=== PATIENT | female | born 1960 | race Caucasian/White ===

== ENCOUNTER 2016-08-29 07:14 | Day surgery (SDC) | payer MEDICARE ==
[~2016-08-29] VITALS: Ht 157.5 cm; Wt 57.7 kg
--- NOTE | ~2016-08-29 | OP ---
PATIENT NAME: TSERING TEMPLE MEDICAL RECORD: [id number] :60 [facility]: SURGEON: MILAGRO BROWN MD DATE OF OPERATION: 08/29/2016 PREOPERATIVE DIAGNOSES: Left C5 radiculopathy secondary to osteophyte formation and disc protrusion at C4-C5. PROCEDURE: Anterior cervical discectomy and fusion with VIP anterior cervical plate and screws from [employer], a 6 mm Colonial PEEK spacer, 2 mL of [employer]inex allograft, 4.6 x 16 mm self-tapping screws. DESCRIPTION OF TECHNIQUE: After induction of general endotracheal anesthesia, the patient was positioned supine on the operating table. Neck was prepped and draped in usual sterile fashion. Fluoroscopic x-ray and freer localized the C4-C5 interspace. A transverse skin incision was carried out in the midline to the sternocleidomastoid muscle and the platysma was divided with Bovie cautery. Using blunt and sharp dissection with Metzenbaum scissors, I proceeded in an avascular plane medial to the carotid sheath. Next, the C4-C5 interspace was confirmed. The longus colli muscles were elevated from the bodies of C4 and C5. The disc space was incised with #11 blade, curets used to removed disc material and osteophytes posteriorly with Midas-Cl drill. The posterior ____ with Cloward rongeurs and a 6 mm PEEK interbody spacer was placed in the disc space under distraction. Prior to this, it was filled with Kinex and allograft. A VIP anterior cervical plate and screws were used to span the C4-C5 interspace, locking cams tighten down the screw heads. Good position of the hardware was confirmed with fluoroscopic x-ray. Meticulous hemostasis was maintained throughout the wounds. The platysma and subdermal layer were closed with interrupted 3-0 Vicryl suture. The skin was reapproximated with Steri-Strips. A sterile dressing was applied on the wound. The patient was awakened in good condition and taken to recovery. All counts were reported as correct. Estimated blood loss was minimal. TRANSINT:[id number] Voice Confirmation ID: [id number] DOCUMENT ID: [id number] MILAGRO BROWN MD CC: [id number] DICTATION DATE: 09/13/16 1327 TEMPLE MEAT CUTTER: 09/13/16 224 [facility] 08/30/16 [facility] [address] [place] [address]
[~2016-08-29 07:14] MED LIST: ALEVE220 MG PO; ASPIRIN EC81 M1 PO; AVAPRO300 MG PO; HYDROCODONE-APA1 TAB PO; LIDOCAINE50 GM TOPICAL; MARTEN-TAB 325/1 TAB PO; PROZAC40 MG PO; SOMA350 MG PO; TENORMIN25 MG PO; VENTOLIN HFA18 GM INH; XALATAN 0.0052.5 ML EACH EYE; XANAX1 MG PO
--- NOTE | 2016-08-29 07:16 | NUR ---
0655 ENTER PATIENT'S ROOM. PT STATES ONLY CHANGES TO HEALTH HISTORY ASSESSMENT ARE INCREASED PAIN LEVEL THIS AM: 11/16 & NO SLEEP LAST NIGHT. LAST BM: 08/27/16. NPO SINCE MIDNIGHT EXCEPT AM MEDS. Breann ARAGON R.N.
[2016-08-29 07:20] VITALS: BP 158/83; BMI 23.3
[2016-08-29 08:19] LABS: APTT 26.6 SECONDS (22.8-39.4); HEMATOCRIT 35.5 % (36.0-48.0); HEMOGLOBIN 11.8 g/dL (12-16); INR 0.96 (0.85-1.17); MCHC 33.2 g/dL (31.0-37.0); MCV 87.2 fL (80.0-100.0); PLATELET COUNT 257 10x3/uL (130-400); PROTIME 12.7 SECONDS (11.6-15.0); RBC 4.07 10x6/uL (4.00-5.40); RDW 14.2 % (11.5-14.5); WBC 7.1 10x3/uL (4.8-10.8)
[2016-08-29 08:20] LABS: BASOPHILS 0.1 % (0-2); EOSINOPHILS 1.1 % (0-7); IMMATURE GRANULOCYTES 0.3 % (0-5); LYMPHOCYTES 29.5 % (15-50); MEAN PLATELET VOLUME 9.7 fL (7.4-10.4)
--- NOTE | 2016-08-29 08:25 | NUR ---
0820 08/28/16 LAB: K+ 3.3. OR/MYRON NOTIFIED. CHART FLAGGED. Breann ARAGON R.N.
--- NOTE | 2016-08-29 10:26 | NUR ---
PAIN ON LEFT SIDE
[2016-08-29 13:26] VITALS: BP 134/68
--- NOTE | 2016-08-29 13:30 | NUR ---
TO ROOM 2212 FROM PACU VIA BED.PT AWAKE AND ALERT.WITHOUT PAIN,BUT C/O ITCHING.ORIENTATION TO ROOM WITH FAMILY AND PT.INCISION ANTERIOR NECK APPROXIMATED,WITHOUT DRAINAGE.SITE WITHOUT SWELLING.PT REQUESTING ANXIETY MEDS,MEDS FOR ITCHING.ALSO REQUESTING COFFE AND FOOD.CALL LIGHT IN REACH.MONITOR
--- NOTE | 2016-08-29 13:50 | NUR ---
MEDS ORDERED FOR ITCHING.COFFEE TO PT.PT WAITING ON FOOD TRAY.REMAINS WITHOUT DISTRESS.
[2016-08-29 14:20] VITALS: BP 134/68; Ht 157.5 cm; Wt 57.7 kg
[2016-08-29 16:28] VITALS: BP 161/83
--- NOTE | 2016-08-29 18:33 | NUR ---
REMAINS WITHOUT DISTRESS,BUT REQUESTING PAIN MEDS AND SOMA BENY TIME.CALL LIGHT IN REACH
[2016-08-29 20:00] VITALS: BP 134/63
[2016-08-30] VITALS: BP 150/78
--- NOTE | 2016-08-30 01:29 | NUR ---
REC'D PATIENT SITTING UP IN BED WATCHING TV. ALERT AND ORIENTED X4. NO DISTRESS NOTED. IS WANTING HER SOMA. WILL ADMINISTER MEDS PRESCRIBED. DENIED FURTHER NEEDS AT THIS TIME. BED LOW, LOCKED, CALL LIGHT IN REACH, ALARM ON.
[2016-08-30 04:00] VITALS: BP 148/64
--- NOTE | 2016-08-30 07:15 | NUR ---
REPORT RECEIVED FROM BACK TENDER FOURDRINIER NURSE. CALL LIGHT IN REACH.
[2016-08-30 07:56] VITALS: BP 172/70
--- NOTE | 2016-08-30 08:19 | NUR ---
PARUL AND CHERELLE WITH AM MEDS. STATES PAIN HAS DECREASED TO A 9. REFUSES SCDs. CALL LIGHT IN REACH. WILL CONITNUE WITH PLAN OF CARE.
--- NOTE | 2016-08-30 09:20 | NUR ---
RX FOR PERCOCET HANDED TO PATIENT.
[2016-08-30] MEDS ORDERED: PERCOCET 10/3251 TA1 PO (09:55)
--- NOTE | 2016-08-30 11:51 | NUR ---
IV DCD WITH CATH INTACT.DISCHARGE INSTRUCTIONS,STATES UNDERSTANDING.
--- NOTE | 2016-08-30 12:32 | NUR ---
DC'D TO VEHICLE VIA WC WITH SON.
== END 2016-08-30 12:34 | disposition home or self-care (01) ==
LOC: OBSVTIME → D.OPS 07:14 → D.SDCHOLD 07:14 → D.MS 07:14 → D.SDCHOLD 07:14 → EDSTATUS 09:00 → D.MS 13:06 → D.SDCHOLD 13:06 → OBSVTIME 13:31 → D.OPS 08-30 12:34 → D.MS 08-30 12:34
PROVIDERS: Neurological Surgery
DX: M50.121 Cervical disc disorder at C4-C5 level with radiculopathy (principal)

== ENCOUNTER 2017-10-02 09:04 | Day surgery (SDC) | payer MEDICARE ==
[~2017-10-02] VITALS: Ht 157.5 cm; Wt 56.8 kg
--- NOTE | ~2017-10-02 | OP ---
PATIENT NAME: TSERING TEMPLE MEDICAL RECORD: [id number] :60 LOCATION:CASE ADMISSION DATE: SURGEON: MILAGRO RILEY MD DATE OF OPERATION: 10/03/2017 PREOPERATIVE DIAGNOSIS: Left C4 radiculopathy. POSTOPERATIVE DIAGNOSIS: Left C4 radiculopathy secondary to foraminal stenosis. SURGEON: Milargo Riley MD PROCEDURE: Left posterior cervical foraminotomy. DESCRIPTION AND TECHNIQUE: After induction of general endotracheal anesthesia, the patient was rolled prone and placed in Hoang head pins. Extremities were padded as well as shoulders and hip rolls. After sterile prep and drape of the posterior cervical spine, a 1:100,000 epinephrine with 1% lidocaine was infiltrated into the subcutaneous tissues on the left at C3-C4. The level was confirmed with a spinal needle. A stab incision was created with a #11 blade. Bovie cautery was used to incise the fascia and then using a subperiosteal dissection with an elevator, the lamina of C3 and C4 and spinous processes and facet joint were exposed on the left side. Level was confirmed with fluoroscopic x-ray. Next, a microscope and Midas Cl drill were used to perform a laminotomy, medial facetectomy and foraminotomy at C3-C4 on the left. Hypertrophied ligamentum flavum was removed with Cloward rongeurs. This appeared to decompress the left C4 nerve root well. Meticulous hemostasis was maintained throughout the wound. The wound was irrigated with copious amounts of Ancef irrigant solution. The fascia was closed with 2-0 Vicryl suture. The subdermal layer was closed with 3-0 Vicryl suture. Skin was closed with lucero. A sterile dressing was applied to the wound. The patient was awakened in good condition and taken to recovery. All counts were reported as correct. Estimated blood loss was minimal. TRANSINT:[id number] Voice Confirmation ID: [id number] DOCUMENT ID: [id number] MILAGRO RILEY MD at 1843 CC: [id number] DICTATION DATE: 10/16/17 2356 BUSINESS SERVICES DIRECTOR: 10/17/17 0752 [facility] 10/03/17 [place] [address]
[~2017-10-02 09:04] MED LIST changes: +NEURONTIN 300300 MG PO; +NORVASC10 MG PO; +PERCOCET 10/3251 TA1 PO; +PHENERGAN25 M1 PO; -TENORMIN25 MG PO; +TENORMIN50 MG PO
[2017-10-02 09:46] LABS: HEMATOCRIT 37.7 % (36.0-48.0); HEMOGLOBIN 12.8 g/dL (12-16); MCH 30.4 pg (26.0-34.0); MCV 89.5 fL (80.0-100.0); MEAN PLATELET VOLUME 9.2 fL (7.4-10.4); RBC 4.21 10x6/uL (4.00-5.40); RDW 13.2 % (11.5-14.5); WBC 9.3 10x3/uL (4.8-10.8)
[2017-10-02 10:16] VITALS: BP 117/61; BMI 22.9
[2017-10-02 15:42] VITALS: BP 118/58
[2017-10-02 15:45] VITALS: BP 118/58
[2017-10-02 17:01] VITALS: BP 118/58; Ht 157.5 cm; Wt 56.8 kg
[2017-10-02 17:38] VITALS: BP 155/90
[2017-10-02 18:38] VITALS: BP 123/63
[2017-10-02] MEDS ORDERED: BAYER CHEWABLE81 MG PO (19:55)
[2017-10-03 04:01] VITALS: BP 98/57
[2017-10-03 08:55] VITALS: BP 102/86
[2017-10-03 12:12] VITALS: BP 149/74
[2017-10-03] MEDS ORDERED: PERCOCET PO (12:35)
[2017-12-20] MEDS ORDERED: BREO ELLIPTA 11 EACH INH (10:31)
[2017-12-20] MEDS ORDERED: TRAZODONE HCL150 MG PO (10:35)
[2017-12-20] MEDS ORDERED: PERCOCET 5-3251 TAB PO (10:43)
== END 2017-10-03 14:08 | disposition home or self-care (01) ==
LOC: D.OPS 09:04 → D.MS 09:04 → D.PAN 10:15 → D.OPS 10:15 → D.MS 15:04 → D.OPS 10-03 14:08
PROVIDERS: Anesthesiology
DX: M54.12 Radiculopathy, cervical region (principal); I10 Essential (primary) hypertension; Z72.0 Tobacco use; Z01.812 Encounter for preprocedural laboratory examination

== ENCOUNTER → 2017-12-03 12:19 | Outpatient (CLI) | payer MEDICARE ==
[2017-10-02 17:01] VITALS: BMI 22.9
[~2017-12-03 12:19] MED LIST changes: +BAYER CHEWABLE81 MG PO; +BREO ELLIPTA 11 EACH INH; +PERCOCET 5-3251 TAB PO; +PERCOCET PO; +TRAZODONE HCL150 MG PO
== END | disposition home or self-care (01) ==
LOC: D.CT 12:19
DX: M54.12 Radiculopathy, cervical region (principal)

== ENCOUNTER 2017-12-21 05:13 | Day surgery (SDC) | payer MEDICARE ==
[~2017-12-21] VITALS: Ht 157.5 cm; Wt 63.6 kg
--- NOTE | ~2017-12-21 | OP ---
PATIENT NAME: TSERING TEMPLE MEDICAL RECORD: [id number] :60 LOCATION:[facility] ADMISSION DATE: SURGEON: MILAGRO RILEY MD DATE OF OPERATION: 12/21/2017 PREOPERATIVE DIAGNOSES: Disc herniation and osteophyte formation at C3-C4 bilaterally. POSTOPERATIVE DIAGNOSES: Disc herniation and osteophyte formation at C3-C4 bilaterally. PROCEDURE: Anterior cervical discectomy and fusion at C3-C4 with anterior cervical plate and screws, screws from [employer]; PEEK interbody cage and Janet bone stem cell allograft, removal of osteophytes. SURGEON: Milagro Riley MD DESCRIPTION AND TECHNIQUE: After induction of general endotracheal anesthesia, the patient was positioned on the operating table. Neck was prepped and draped in usual sterile fashion. Fluoroscopic x-ray and freer localized the C3-C4 interspace. A transverse skin incision was carried out with a #15 blade after infiltration 1:100,000 epinephrine and 1% lidocaine. The platysma was divided with Bovie cautery. Then, using blunt and sharp dissection with Metzenbaum scissors, I proceeded in the avascular plane medial to the carotid sheath. The C3-C4 interspace was identified with fluoroscopic x-ray. Prior C4-C5 anterior cervical plate and screws were removed with hardware from [employer]. Next, the Lincoln distracting pins were placed in the bodies of C3 and C4. Self-retaining retractor blades were placed deep to the longus colli muscles prior to this. Disc space was incised under distraction. Disc material was removed with pituitary rongeurs and curettes. Osteophytes were drilled away posteriorly with Midas-Cl drill and microscope. The posterior longitudinal ligament was removed with Cloward rongeurs. Following this, the dura was decompressed well. An 8-mm PEEK interbody cage was placed in the disc space. Prior to this, it was filled with [employer] bone stem cell allograft. A separate anterior cervical plate and screws was used to span the C3-C4 interspace. Locking cams were tightened down over the screw heads. Good position of the hardware was confirmed with fluoroscopic x-ray. Meticulous hemostasis was maintained throughout the wound. The wound was irrigated with copious amounts of Ancef irrigant solution. The platysma and subdermal layer closed with interrupted 3-0 Vicryl suture. The skin was reapproximated with Steri-Strips. A sterile dressing was applied to the wound. The patient was awakened in good condition and taken to recovery. All counts were reported as correct. Estimated blood loss was minimal. TRANSINT:[id number] Voice Confirmation ID: [id number] DOCUMENT ID: [id number] MILAGRO RILEY MD at 1338 CC: [id number] DICTATION DATE: 12/21/17 1123 GROUP SEGMENT CONSULTANT: 12/21/17 1219 [facility] [place] [id number]
[2017-12-21 02:00] VITALS: BP 88/55
[2017-12-21 05:42] LABS: HEMATOCRIT 36.5 % (36.0-48.0); HEMOGLOBIN 12.4 g/dL (12-16); MCV 88.2 fL (80.0-100.0); MEAN PLATELET VOLUME 9.6 fL (7.4-10.4); RBC 4.14 10x6/uL (4.00-5.40); RDW 12.6 % (11.5-14.5)
[2017-12-21 06:18] VITALS: BP 103/63; BMI 22.9
[2017-12-21 21:00] VITALS: BP 118/52
[2017-12-21 22:00] VITALS: BP 112/62
[2017-12-21 23:00] VITALS: BP 115/56
[2017-12-22] VITALS (9 sets, daily range): BP systolic 100–123; BP diastolic 48–76; Ht 157.5 cm; Wt 63.6 kg
== END 2017-12-22 10:45 | disposition home or self-care (01) ==
LOC: D.OPS 05:13 → D.CVICU 05:13 → D.OPS 07:30 → D.PAN 07:30 → D.CVICU 11:14 → D.OPS 12-22 10:45
PROVIDERS: Anesthesiology
DX: M50.21 Other cervical disc displacement, high cervical region (principal); M25.78 Osteophyte, vertebrae; Z01.812 Encounter for preprocedural laboratory examination